=== PATIENT | female | born 2000 ===

== ENCOUNTER 2019-01-17 20:34 | Inpatient (IN) | payer MEDICAID ==
[~2019-01-17] VITALS: Ht 149.9 cm; Wt 67.4 kg
[2019-01-17] MEDS ORDERED: QUEtiapine FUMARATE 100 MG TABLET PO PRN (21:00)
[2019-01-17] MEDS ORDERED: LORazepam 2 MG TABLET PO PRN (21:00)
[2019-01-17 22:14] VITALS: BP 126/60
[2019-01-17] MEDS ORDERED: FLUO-191 PO (22:36)
[2019-01-18] MEDS ORDERED: PERMETHRIN 1% 60 ML LOTION TP ONE (00:15)
[2019-01-18 06:34] VITALS: BP 129/83
[2019-01-18 07:52] LABS: BASOPHILS % (AUTO) 0.5 % (0.0-2.0); EOSINOPHILS % (AUTO) 1.6 % (1.0-6.0); HEMATOCRIT 41.6 % (36-46); LYMPHOCYTES # (AUTO) 2.1 K/uL (1.0-4.8); LYMPHOCYTES % (AUTO) 37.2 % (22.0-44.0); MEAN CORPUSCULAR HEMOGLOBIN 27.8 pg (26.0-34.0); MEAN CORPUSCULAR HGB CONC 33.8 G/dL (31.0-37.0); MEAN CORPUSCULAR VOLUME 82 fL (80-100); MONOCYTES # (AUTO) 0.6 K/uL (0.1-1.0); MONOCYTES % (AUTO) 10.4 % (2.0-9.0); NEUTROPHILS # (AUTO) 2.9 K/uL (1.8-7.7); NEUTROPHILS % (AUTO) 50.3 % (40.0-70.0); PLATELET COUNT (AUTO) 234 K/uL (150-450); RED BLOOD CELL COUNT(AUTO) 5.05 MIL/uL (4.00-5.20); RED CELL DISTRIBUTION WIDTH 12.2 % (11.5-14.5)
[2019-01-18 08:32] LABS: ANION GAP 10 mmol/L (8-16); CARBON DIOXIDE 27 mmol/L (22-29); CHLORIDE 102 mmol/L (98-107); CREATININE 0.69 mg/dL (0.60-1.30); GLOMERULAR FILTR. RATE CALC > 60 mL/min (>60); GLUCOSE,RANDOM 85 mg/dL (70-110); POTASSIUM 3.4 mmol/L (3.5-5.1); SODIUM SERUM 139 mmol/L (136-145); UREA NITROGEN, BLOOD 12 mg/dL (7-18)
[2019-01-18 08:33] LABS: ALANINE AMINOTRANSFERASE 23 U/L (12-78); ALBUMIN 3.8 g/dL (3.4-5.0); ALKALINE PHOSPHATASE 80 U/L (46-116); ASPARTATE AMINOTRANSFERASE 16 U/L (15-37); BILIRUBIN,TOTAL 2.3 mg/dL (0.1-1.0); CHOL/HDL RATIO 2.6 (3.9-5.7); CHOLESTEROL 179 mg/dL (131-200); HCG,QUANTITATIVE < 1 mIU/mL (0-6); HDL CHOLESTEROL 70 mg/dL (40-60); LDL CHOL (CALC.) 95 mg/dL (0-130); THYROID STIMULATING HORMONE 1.74 uIU/mL (0.36-3.74); TOTAL PROTEIN, SERUM 7.5 g/dL (6.4-8.2); TRIGLYCERIDES 72 mg/dL (15-150)
[2019-01-18] MEDS: FLUoxetine HCL 20 MG CAPSULE PO SCH (09:00)
[2019-01-18] MEDS ORDERED: POTASSIUM CHLORIDE 20 MEQ ER TABLET PO ONE (10:00)
[2019-01-18 12:21] VITALS: BP 104/61
[2019-01-18 16:18] VITALS: BP 101/65
[2019-01-18] MEDS: ZOLPIDEM TARTRATE 10 MG TABLET PO PRN (22:29)
[2019-01-19 06:14] VITALS: BP 118/62
[2019-01-19 08:40] VITALS: BP 102/55
[2019-01-19] MEDS: FLUoxetine HCL 20 MG CAPSULE PO SCH (08:50)
[2019-01-19 16:09] VITALS: BP 107/88
[2019-01-19] MEDS ORDERED: FLUO-191 PO (17:04)
[2019-01-19] MEDS ORDERED: LOPERAMIDE HCL 2 MG CAPSULE PO PRN (17:15)
[2019-01-19] MEDS ORDERED: ACETAMINOPHEN 325 MG TABLET PO PRN (17:15)
[2019-01-19] MEDS ORDERED: PROMETHAZINE HCL 25 MG TABLET PO PRN (17:15)
[2019-01-19] MEDS ORDERED: GuaiFENesin/D-METHORPHAN [SUGAR-FREE] 200-20MG/10 ML SYRUP UDCUP PO PRN (17:15)
[2019-01-19] MEDS ORDERED: MAG HYDROX/AL HYDROX/SIMETH ES 30 ML SUSPENSION UDCUP PO PRN (17:15)
[2019-01-19] MEDS ORDERED: MAGNESIUM HYDROXIDE SUSPENSION 30 ML UDCUP PO PRN (17:15)
[2019-01-19] MEDS ORDERED: HydrOXYzine PAMOATE 50 MG CAPSULE PO PRN (17:15)
[2019-01-19] MEDS: ZOLPIDEM TARTRATE 10 MG TABLET PO PRN (20:47)
[2019-01-20 00:10] VITALS: BP 113/75
[2019-01-20 08:37] VITALS: BP 100/60
[2019-01-20] MEDS ORDERED: THIAMINE HCL 100 MG TABLET PO SCH (09:00)
[2019-01-20] MEDS ORDERED: MULTIVITAMINS WITH MINERALS, THERAPEUTIC TABLET PO SCH (09:00)
[2019-01-20] MEDS ORDERED: FOLIC ACID 1 MG TABLET PO SCH (09:00)
[2019-01-20] MEDS: FLUoxetine HCL 20 MG CAPSULE PO SCH (09:00)
== END 2019-01-20 11:50 | disposition home or self-care (01) | DRG 751 ==
LOC: B2S 20:59
PROVIDERS: ADMIT Psychiatry & Neurology Psychiatry; ATTEND Psychiatry & Neurology Psychiatry
DX: F33.2 Major depressive disorder, recurrent severe without psychotic features (principal); Z91.19 Patient's noncompliance with other medical treatment and regimen; D64.9 Anemia, unspecified
CPT/HCPCS: 80074; 83036; 84439; 84443